=== PATIENT | female | born 1950 | race Caucasian/White ===

== ENCOUNTER 2018-11-11 06:29 | Day surgery (SDC) | payer BC ==
[2018-11-07 10:29] VITALS: BMI 21.2
[2018-11-11] MEDS ORDERED: PHENYLEPHRINE 2.5% OPHTH SOLN 15 ML BOTTLE OD SCH (07:00)
[2018-11-11] MEDS ORDERED: TROPICAMIDE 1% OPHTH SOLN 15 ML BOTTLE OD SCH (07:00)
[2018-11-11] MEDS ORDERED: OFLOXACIN 0.3% OPHTHALMIC SOLUTION 5 ML BOTTLE OD SCH (07:00)
[2018-11-11] MEDS ORDERED: OFLOXACIN 0.3% OPHTHALMIC SOLUTION 5 ML BOTTLE ONE (07:02)
[2018-11-11] MEDS ORDERED: CYCLOPENTOLATE HCL 1% OPHTH SOLN 2 ML BOTTLE ONE (07:02)
[2018-11-11] MEDS ORDERED: BACITRACIN/POLYMYXIN OPH OINT 3.5 GM TUBE ONE (07:14)
[2018-11-11] MEDS ORDERED: BETAXOLOL HCL 0.25% OPHTHALMIC 10 ML DROPSBTL ONE (07:14)
[2018-11-11] MEDS: KETOROLAC TROMETHAMINE 0.5% EYE DROP 1 DROP DROPS OD SCH ×5 (07:15→07:35)
[2018-11-11] MEDS: TROPICAMIDE 1% OPHTH SOLN 15 ML BOTTLE ONE ×5 (07:15→07:35)
[2018-11-11] MEDS ORDERED: EPI-SHUGARCAINE (EPINEPHRINE 0.025% & LIDOCAINE-PF 0.75%) 4ML ONE (07:15)
[2018-11-11] MEDS ORDERED: TETRACAINE 0.5% OPHTH SOLN 2 ML BOTTLE ONE (07:15)
[2018-11-11] MEDS ORDERED: POVIDONE-IODINE 5% OPHTHALMIC PREP 30 ML SOLUTION ONE (07:15)
[2018-11-11] MEDS: CYCLOPENTOLATE HCL 1% OPHTH SOLN 2 ML BOTTLE OD SCH ×5 (07:15→07:35)
[2018-11-11] MEDS: PHENYLEPHRINE 2.5% OPHTH SOLN 15 ML BOTTLE ONE ×5 (07:15→07:35)
[2018-11-11] MEDS ORDERED: EPINEPHrine/PF 1 MG/1 ML (1:1,000) AMPULE ONE (07:16)
[2018-11-11] MEDS ORDERED: NEO/POLYMYX B SULF/DEXAMETH OPHTHALMIC 5ML BOTTLE ONE (07:16)
[2018-11-11] MEDS ORDERED: ACETYLCHOLINE 1:100 INTRA-OCUL 20 MG/2 ML KIT ONE (07:16)
[2018-11-11] MEDS ORDERED: OFLOXACIN 0.3% OPHTHALMIC SOLUTION 5 ML BOTTLE OD ONE ×4 (07:20→07:35)
[2018-11-11] MEDS ORDERED: MIDAZOLAM HCL 2 MG/2 ML SINGLE DOSE VIAL ONE ×2 (08:22→08:36)
[2018-11-11] MEDS ORDERED: ONDANSETRON 4 MG/2 ML VIAL IVPUSH PRN (09:20)
[2018-11-11] MEDS ORDERED: ACETAMINOPHEN 325 MG TABLET (FP) PO PRN ×2 (09:20→09:32)
[2018-11-11] MEDS ORDERED: LACTATED RINGERS SOLUTION 1,000 ML IV SCH (09:30)
[2018-11-11 09:40] VITALS: TEMP 98.2
[2018-11-11 10:19] VITALS: BP 109/64; PULSE 79
--- NOTE | 2018-11-11 10:49 | OP ---
DATE OF OPERATION: 11/11/2018 PREOPERATIVE DIAGNOSIS: Cataract, right eye. POSTOPERATIVE DIAGNOSIS: Cataract, right eye. PROCEDURE: Cataract extraction via phacoemulsification with insertion of posterior chamber lens implant, right eye. SURGEON: Will Espinoza MD TRIP FOLLOWER: Faye Callahan MD ANESTHESIA: Topical with sedation. ESTIMATED BLOOD LOSS: Less than 1 mL. COMPLICATIONS: None. SPECIMENS: None. DESCRIPTION OF PROCEDURE: The patient was identified in the holding area. After all the risks, benefits, and alternatives were explained to the patient, informed consent was obtained. The right eye was marked with a marking pen. The patient then entered the operating room on an eye stretcher. After a formal time-out was performed, the patient was instructed to sit up and look straight ahead and topical tetracaine eye drops were instilled onto the right eye. The cardinal axes of astigmatism were marked for preparation of the main wound. The patient was then instructed to lie back down, and the right was prepped and draped in the usual sterile fashion. An eyelid speculum was placed beneath the eyelids of the right eye. Then, using a Toric Dial and a Toric Marker with a marking pen, the axes of astigmatism, the steep axis was noted to be 68 degrees and it was marked on the cornea. Then, a superotemporal paracentesis incision was created using a 15-degree blade. Topical preservative-free epinephrine and preservative-free lidocaine were then injected into the anterior chamber. Viscoelastic was then injected into the anterior chamber. A 2.4-mm blade was then used to make an inferotemporal incision at the 68-degree meridian, and a 360-degree continuous curvilinear capsulorrhexis was then created using bent cystotome and Utrata forceps. Hydrodissection was performed using balanced saline solution on a cannula. Phacoemulsification was introduced to disassemble and remove the nucleus in its entirety. Irrigation/aspiration was then used to remove any remaining cortical material from the eye. The capsular bag was reformed using viscoelastic. An Wellington model SV25T0 with a power of 15.0 diopters, serial number [id number], was inspected and found to be defect-free and injected into the capsular bag. Irrigation/aspiration was then used to remove any remaining viscoelastic paying attention to posterior to the optic. Then, the intraocular lens was rotated, so the haptics were at 6 and 12. Then, intracameral injections of Miochol and Miostat were administered, and the pupil came down and was round. Then, again after all viscoelastic was cleared from the eye and after the intracameral injections of Miochol and Miostat were then given, all wounds were hydrated with balanced saline solution and noted to be watertight. The patient was then instructed to look at the microscope light and using the observed reflexes, the lens was confirmed to be perfectly centered in the patients visual axis. After it was confirmed that the lens was perfectly centered in the visual axis and the pupil was round, then, topical antibiotic eye drops and ointment were then administered to the right eye. Before the antibiotics were administered, it was confirmed that there was a red reflex present, the anterior chamber was deep, the eye had an adequate pressure, and all wounds were sealed. Then, the eyelid speculum was removed from the right eye. The right eye was shielded. The patient tolerated the procedure well and left the operating room in stable condition to follow up in the eye clinic tomorrow morning at 10:00. WILL ESPINOZA M.D. [id number]
== END 2018-11-11 10:20 | disposition home or self-care (01) ==
LOC: FASU 06:29
PROVIDERS: ATTEND Ophthalmology
PROC: 08RJ3JZ Replacement of Right Lens with Synthetic Substitute, Percutaneous Approach (ICD-10-PCS; principal; 2018-11-11 08:46)
DX: H26.9 Unspecified cataract (principal)

== ENCOUNTER 2018-12-02 09:25 | Day surgery (SDC) | payer BC ==
[2018-12-01 11:26] VITALS: BMI 21.2
[2018-12-02] MEDS ORDERED: OFLOXACIN 0.3% OPHTHALMIC SOLUTION 5 ML BOTTLE ONE (10:24)
[2018-12-02] MEDS ORDERED: CYCLOPENTOLATE HCL 1% OPHTH SOLN 2 ML BOTTLE ONE (10:24)
[2018-12-02] MEDS ORDERED: KETOROLAC TROMETHAMINE 0.5% EYE DROP 1 DROP DROPS ONE (10:24)
[2018-12-02] MEDS ORDERED: TROPICAMIDE 1% OPHTH SOLN 15 ML BOTTLE ONE (10:24)
[2018-12-02] MEDS ORDERED: PHENYLEPHRINE 2.5% OPHTH SOLN 15 ML BOTTLE ONE (10:24)
[2018-12-02] MEDS: KETOROLAC TROMETHAMINE 0.5% EYE DROP 1 DROP DROPS OS SCH ×5 (10:35→10:55)
[2018-12-02] MEDS: OFLOXACIN 0.3% OPHTHALMIC SOLUTION 5 ML BOTTLE OS SCH ×5 (10:35→10:55)
[2018-12-02] MEDS: CYCLOPENTOLATE HCL 1% OPHTH SOLN 2 ML BOTTLE OS SCH ×5 (10:35→10:55)
[2018-12-02] MEDS: PHENYLEPHRINE 2.5% OPHTH SOLN 15 ML BOTTLE OS SCH ×5 (10:35→10:55)
[2018-12-02] MEDS: TROPICAMIDE 1% OPHTH SOLN 15 ML BOTTLE OS SCH ×5 (10:35→10:55)
[2018-12-02] MEDS ORDERED: BACITRACIN/POLYMYXIN OPH OINT 3.5 GM TUBE ONE (11:39)
[2018-12-02] MEDS ORDERED: NEO/POLYMYX B SULF/DEXAMETH OPHTHALMIC 5ML BOTTLE ONE (11:40)
[2018-12-02] MEDS ORDERED: ACETYLCHOLINE 1:100 INTRA-OCUL 20 MG/2 ML KIT ONE (11:40)
[2018-12-02] MEDS ORDERED: TETRACAINE 0.5% OPHTH SOLN 2 ML BOTTLE ONE (11:40)
[2018-12-02] MEDS ORDERED: BETAXOLOL HCL 0.25% OPHTHALMIC 10 ML DROPSBTL ONE (11:40)
[2018-12-02] MEDS ORDERED: EPI-SHUGARCAINE (EPINEPHRINE 0.025% & LIDOCAINE-PF 0.75%) 4ML ONE (11:40)
[2018-12-02] MEDS ORDERED: POVIDONE-IODINE 5% OPHTHALMIC PREP 30 ML SOLUTION ONE (11:40)
[2018-12-02] MEDS ORDERED: MIDAZOLAM HCL 2 MG/2 ML SINGLE DOSE VIAL ONE ×3 (11:57→12:52)
[2018-12-02] MEDS ORDERED: BSS (NA/CA/MG/K) BALANCED SALT SOLUTION OPHTH SOLN 15 ML BOTTLE ONE (12:43)
[2018-12-02] MEDS ORDERED: ACETAMINOPHEN 325 MG TABLET (FP) PO PRN (13:00)
[2018-12-02 13:23] VITALS: TEMP 97.8
[2018-12-02 14:29] VITALS: BP 127/75; PULSE 72
--- NOTE | 2018-12-02 15:51 | OP ---
DATE OF OPERATION: 12/02/2018 PREOPERATIVE DIAGNOSIS: Cataract, left eye. POSTOPERATIVE DIAGNOSIS: Cataract, left eye. PROCEDURE: Cataract extraction via phacoemulsification with insertion of posterior chamber lens implant, left eye, multifocal toric lens. SURGEON: Will Espinoza MD SALES SERVICE PROFESSIONAL: Faye Callahan MD ANESTHESIA: Topical with sedation. ESTIMATED BLOOD LOSS: Less than 1 mL COMPLICATIONS: None. SPECIMENS: None. PROCEDURE: The patient was identified in the holding area. After all risks, benefits and alternatives were explained to the patient, informed consent was obtained. The left eye was marked with a marking pen. The patient then entered the operating room and, after a formal timeout was performed, topical tetracaine eye drops were instilled onto the left eye. The patient was then asked to sit up and look straight ahead and the cardinal axes of astigmatism were measured using a toric bubble marker and a marking pen. The patient was then asked to lie back down and the left eye was prepped and draped in the usual sterile fashion. An eyelid speculum was placed beneath the eyelids of the left eye. Then the axis of astigmatism was marked onto the cornea, which was noted to be 145 degrees using a toric dial and a toric marking pen. Once the axis of astigmatism was labeled onto the cornea, an inferotemporal paracentesis incision was created using a 15-degree blade. Topical preservative-free epinephrine and preservative-free lidocaine were then injected into the anterior chamber. Viscoelastic was then injected into the anterior chamber. A 2.4 mm keratome blade was then used to make a superotemporal incision. A 360-degree continuous curvilinear capsulorrhexis was then created using bent cystotome and Utrata forceps. Hydrodissection was performed using balanced saline solution on a cannula. Phacoemulsification was introduced. It disassembled and removed the nucleus in its entirety. Irrigation/aspiration was then used to remove any remaining cortical material from the eye. The capsular bag was reformed using viscoelastic. An Wellington model SV25T3 with a power of 14.5 diopters, serial number [id number] was inspected and found to be defect free and injected in the capsular bag. Irrigation/aspiration was then used to remove any remaining viscoelastic from the eye. The intraocular lens was rotated so that the axis of the astigmatism on the optic matched the axis of the astigmatism on the cornea, which was noted to be 145 degrees. Then intracameral injection of Miochol was then administered and pupil came down and was round, and then all wounds were hydrated with balanced saline solution, noted to be watertight. Then the patient was asked to look at the microscope lights, and using the images the lens was centered perfectly so that the visual axis matched the center of the optic. Once that was confirmed, topical antibiotic eye drops were then administered to the left eye. It was noted that the anterior chamber was deep. There was a red reflex present. The lens was perfectly centered in the capsular bag with the axis of astigmatism at 145 degrees and the eye had adequate pressure. Topical antibiotic ointment was then administered to the left eye. The eyelid speculum was removed from the left eye. The left eye was shielded. The patient tolerated the procedure well, left the operating room in stable condition, to follow up in the Eye Clinic tomorrow morning at 10 o'clock. WILL ESPINOZA M.D. [id number]
== END 2018-12-02 14:00 | disposition home or self-care (01) ==
LOC: FASU 09:25
PROVIDERS: ATTEND Ophthalmology
PROC: 08RK3JZ Replacement of Left Lens with Synthetic Substitute, Percutaneous Approach (ICD-10-PCS; principal; 2018-12-02 12:17)
DX: H26.9 Unspecified cataract (principal)